=== PATIENT | male | born 1935 | race African-American/Black ===

== ENCOUNTER 2019-11-19 11:31 | Emergency (ER) | payer MEDICARE, OTHER ==
[~2019-11-19] VITALS: Ht 185.4 cm; Wt 88.0 kg
[2019-11-19 13:35] VITALS: BP 158/76
== END 2019-11-19 13:36 | disposition home or self-care (01) ==
LOC: ER 11:31
DX: T18.128A Food in esophagus causing other injury, initial encounter (principal); I10 Essential (primary) hypertension; Z88.0 Allergy status to penicillin; X58.XXXA Exposure to other specified factors, initial encounter; Y93.89 Activity, other specified; Y92.018 Other place in single-family (private) house as the place of occurrence of the external cause
CPT/HCPCS: 99281

== ENCOUNTER 2022-01-22 10:39 | Inpatient (IN) | payer MEDICARE, OTHER ==
[~2022-01-22] VITALS: Ht 185.4 cm; Wt 85.2 kg
[2022-01-22 12:26] LABS: CHLORIDE 109 mEq/L (98-107)
[2022-01-22 13:00] LABS: BASOPHILS % 0.3 % (0.0-2.0); EOSINOPHILS % 2.5 % (0.0-5.0); HEMATOCRIT. 38.5 % (42.0-52.0); HEMOGLOBIN. 11.9 g/dL (14.0-18.0); LYMPHOCYTES % 29.2 % (20.0-50.0); MEAN CORPUSCULAR HEMOGLOBIN 22.6 pg (28.0-32.0); MEAN CORPUSCULAR VOLUME 73.3 fL (80.0-94.0); MEAN PLATELET VOLUME 8.1 fl (7.4-10.4); MONOCYTES % 12.2 % (2.0-8.0); NEUTROPHILS % 55.8 % (40.0-76.0); PLATELET 194 x1000/uL (130-400); RED BLOOD CELL COUNT 5.25 mill/uL (4.7-6.1); RED CELL DISTRIBUTION WIDTH 20.7 % (11.6-14.6)
[2022-01-22 13:09] LABS: INR 1.1; PROTHROMBIN TIME 11.8 sec (9.6-11.0)
[2022-01-22] MEDS ORDERED: FUROSEMIDE 40MG/4ML VIAL IVP ONE (13:15)
[2022-01-22] MEDS ORDERED: PIPERACILLIN/TAZ 3.375G PREMIX 50 ML IV ONE (13:30)
[2022-01-22] MEDS ORDERED: VANCOMYCIN 1G PREMIX 200 ML IV ONE (13:30)
[2022-01-22] MEDS ORDERED: IPRATROPIUM/ALBUTEROL 0.5-3(2.5)MG/3ML NEB NEB PRN (14:45)
[2022-01-22] MEDS ORDERED: GUAIFENESIN 200MG/10ML SUGAR FREE UDC PO PRN (14:45)
[2022-01-22] MEDS ORDERED: DOCUSATE SODIUM 100MG CAPSULE PO PRN (14:45)
[2022-01-22] MEDS ORDERED: MAGNESIUM/ALUMINUM HYDROXIDE/SIMETHICONE 30ML UDC PO PRN (14:45)
[2022-01-22] MEDS ORDERED: ONDANSETRON HCL 4MG/2ML INJ IV PRN (14:45)
[2022-01-22] MEDS ORDERED: NA PHOS,M-B/NA PHOS,DI-BA ENEMA 118ML PR PRN (14:45)
[2022-01-22] MEDS ORDERED: NITROGLYCERIN 0.4MG TABLET SL SL PRN (14:45)
[2022-01-22] MEDS ORDERED: ACETAMINOPHEN 325MG TABLET PO PRN ×2 (14:45)
[2022-01-22] MEDS ORDERED: LEVOFLOXACIN 500MG PREMIX 100 ML IV NR (15:00)
[2022-01-22] MEDS ORDERED: SODIUM CHLORIDE 0.9% 1000ML BAG (SEPSIS BOLUS) IV NR (15:00)
[2022-01-22 15:18] LABS: ETHANOL BLOOD < 10 mg/dL; HDL CHOLESTEROL 66 mg/dL (40-59); LDL CHOLESTEROL 83 mg/dL (5-100); T4 FREE 1.13 ng/dL (0.76-1.46); TOTAL IRON BINDING CAPACITY 229 ug/dL (250-450)
[2022-01-22 15:36] LABS: BG BASE EXCESS 3.2 mmol/L (-2.0-2.0); BG CARBOXYHEMOGLOBIN 0.4 % (0.5-1.5); BG DEOXYHEMOGLOBIN 4.1 % (0.0-5.0); BG FRACTION INSPIRED OXYGEN 28; BG HCO3 ACT 27.2 mmol/L (22.0-26.0); BG METHEMOGLOBIN 0.3 % (0.0-1.5); BG OXYGEN SATURATION 95.9 % (92.0-98.5); BG OXYHEMOGLOBIN 95.2 % (94.0-97.0); BG PCO2 39.2 mmHg (35.0-45.0); BG PH 7.459 (7.350-7.450); BG PO2 79.3 mmHg (75.0-100.0); BG SAMPLE SITE RIGHT RADIAL; BG TOTAL HEMOGLOBIN 12.3 g/dL (12.0-18.0); BG VENT MODE NASAL CANNULA
[2022-01-22 16:25] LABS: FOLIC ACID (FOLATE) SERUM 10.6 ng/mL (>5.38)
[2022-01-22] MEDS: GUAIFENESIN/DM 600MG/30MG ER TAB 12HR PO SCH (20:56)
[2022-01-22] MEDS: ENOXAPARIN 40MG/0.4ML SYR SUBCUT SCH (20:57)
[2022-01-22] MEDS ORDERED: ZOLPIDEM TARTRATE 5MG TABLET PO PRN (21:00)
[2022-01-22 21:30] VITALS: BP 134/56
[2022-01-22] MEDS: ASCORBIC ACID 500 MG TABLET PO SCH (22:00)
[2022-01-22] MEDS: FAMOTIDINE 20MG TABLET PO SCH (22:00)
[2022-01-23] VITALS: BP 145/66
[2022-01-23] MEDS ORDERED: TOPUD PO (00:48)
[2022-01-23 01:46] LABS: CLARITY URINE CLEAR (CLEAR); COLOR URINE YELLOW (YELLOW); KETONES URINE NEGATIVE (NEGATIVE); LEUKOCYTE ESTERASE URINE NEGATIVE (NEGATIVE); NITRITE URINE NEGATIVE (NEGATIVE); OCCULT BLOOD URINE NEGATIVE (NEGATIVE); PH URINE 5.5 (4.5-8.0); PROTEIN URINE NEGATIVE (NEGATIVE); UROBILINOGEN URINE 0.2 E.U./dL (0.2-1.0)
[2022-01-23 01:59] LABS: *AMPHETAMINES SCREEN URINE NEGATIVE (NEGATIVE); *BARBITURATES SCREEN URINE NEGATIVE (NEGATIVE); *BENZODIAZEPINES SCREEN URINE NEGATIVE (NEGATIVE); *COCAINE SCREEN URINE NEGATIVE (NEGATIVE); CANNABINOID URINE SCREEN NEGATIVE (NEGATIVE); METHADONE URINE SCREEN NEGATIVE (NEGATIVE); OPIATES URINE SCREEN NEGATIVE (NEGATIVE); PHENCYCLIDINE URINE SCREEN NEGATIVE (NEGATIVE)
[2022-01-23 04:00] VITALS: BP 103/74
[2022-01-23] MEDS: GUAIFENESIN/DM 600MG/30MG ER TAB 12HR PO SCH ×2 (05:53→18:11)
[2022-01-23 08:00] VITALS: BP 160/94
[2022-01-23] MEDS ORDERED: ASPIRIN 325MG EC TABLET PO SCH (09:00)
[2022-01-23] MEDS: ASPIRIN 81MG EC TABLET PO SCH (09:17)
[2022-01-23] MEDS: ZINC SULFATE 220 MG ( 50 ) CAPSULE PO SCH (09:17)
[2022-01-23] MEDS: CHOLECALCIFEROL (D3) 1000 UNIT TABLET PO SCH (09:17)
[2022-01-23] MEDS: ASCORBIC ACID 500 MG TABLET PO SCH ×2 (09:17→21:25)
[2022-01-23] MEDS: SPIRONOLACTONE 25MG TABLET PO SCH (09:18)
[2022-01-23 09:31] LABS: HEMATOCRIT. 36.7 % (42.0-52.0); HEMOGLOBIN. 11.6 g/dL (14.0-18.0); MEAN CORPUSCULAR HEMOGLOBIN 22.6 pg (28.0-32.0); MEAN CORPUSCULAR VOLUME 71.5 fL (80.0-94.0); MEAN PLATELET VOLUME 8.3 fl (7.4-10.4); PLATELET 178 x1000/uL (130-400); RED BLOOD CELL COUNT 5.13 mill/uL (4.7-6.1); RED CELL DISTRIBUTION WIDTH 20.2 % (11.6-14.6)
[2022-01-23 09:32] LABS: CHLORIDE 105 mEq/L (98-107)
[2022-01-23 09:39] LABS: CREATINE KINASE MB FRACTION 2.1 ng/mL (0.5-3.6)
[2022-01-23 09:40] LABS: PHOSPHORUS 2.6 mg/dL (2.5-4.9)
[2022-01-23 11:13] LABS: NUCLEATED RED BLOOD CELLS 2 /100 WBC; PLATELET ESTIMATE NORMAL
[2022-01-23 11:50] VITALS: BP 128/77
[2022-01-23] MEDS: AMLODIPINE 5MG TABLET PO SCH (12:17)
[2022-01-23] MEDS: LEVOFLOXACIN 250MG PREMIX 50 ML IV SCH (14:57)
[2022-01-23] MEDS: ENOXAPARIN 40MG/0.4ML SYR SUBCUT SCH (14:58)
[2022-01-23 16:00] VITALS: BP 141/82
[2022-01-23] MEDS ORDERED: REGADENOSON 0.4 MG/5 ML IV SCH (16:00)
[2022-01-23 20:00] VITALS: BP 167/47
[2022-01-23] MEDS: FAMOTIDINE 20MG TABLET PO SCH (21:25)
[2022-01-23] MEDS: METOPROLOL TARTRATE 25MG TABLET PO SCH (21:25)
[2022-01-24] VITALS (7 sets, daily range): BP systolic 127–184; BP diastolic 71–97
[2022-01-24] MEDS: GUAIFENESIN/DM 600MG/30MG ER TAB 12HR PO SCH ×2 (03:23→19:15)
[2022-01-24] MEDS: CLONIDINE 0.1MG TABLET PO PRN (03:23)
[2022-01-24 07:12] LABS: HEMOGLOBIN 11.4 g/dL (14.0-18.0)
[2022-01-24 07:29] LABS: CHLORIDE 105 mEq/L (98-107)
[2022-01-24] MEDS ORDERED: REGADENOSON 0.4 MG/5 ML IV ONE (08:21)
[2022-01-24] MEDS: SPIRONOLACTONE 25MG TABLET PO SCH (09:00)
[2022-01-24] MEDS: METOPROLOL TARTRATE 25MG TABLET PO SCH ×2 (09:00→20:54)
[2022-01-24] MEDS: DEXT 5%/0.9% NACL 1,000 ML IV SCH (12:00)
[2022-01-24] MEDS: ENOXAPARIN 40MG/0.4ML SYR SUBCUT SCH (14:28)
[2022-01-24] MEDS: ASPIRIN 81MG EC TABLET PO SCH (14:29)
[2022-01-24] MEDS: CHOLECALCIFEROL (D3) 1000 UNIT TABLET PO SCH (14:29)
[2022-01-24] MEDS: ASCORBIC ACID 500 MG TABLET PO SCH ×2 (14:29→21:00)
[2022-01-24] MEDS: AMLODIPINE 5MG TABLET PO SCH (14:30)
[2022-01-24] MEDS: ZINC SULFATE 220 MG ( 50 ) CAPSULE PO SCH (14:40)
[2022-01-24] MEDS: LEVOFLOXACIN 250MG PREMIX 50 ML IV SCH (15:00)
[2022-01-24] MEDS: FAMOTIDINE 20MG TABLET PO SCH (21:00)
[2022-01-25] MEDS: CLONIDINE 0.1MG TABLET PO PRN ×2 (00:01→18:01)
[2022-01-25] MEDS: DEXT 5%/0.9% NACL 1,000 ML IV SCH ×2 (00:48→15:40)
[2022-01-25 04:00] VITALS: BP 180/90
[2022-01-25] MEDS: HYDRALAZINE 20MG/ML VIAL IV PRN (05:01)
[2022-01-25] MEDS: GUAIFENESIN/DM 600MG/30MG ER TAB 12HR PO SCH ×2 (05:01→17:48)
[2022-01-25 07:39] LABS: HEMATOCRIT. 34.2 % (42.0-52.0); MEAN CORPUSCULAR VOLUME 71.8 fL (80.0-94.0); MEAN PLATELET VOLUME 8.5 fl (7.4-10.4); PLATELET 172 x1000/uL (130-400); RED BLOOD CELL COUNT 4.77 mill/uL (4.7-6.1); RED CELL DISTRIBUTION WIDTH 20.4 % (11.6-14.6)
[2022-01-25 07:56] LABS: CHLORIDE 104 mEq/L (98-107)
[2022-01-25 08:00] VITALS: BP 161/69
[2022-01-25] MEDS: METOPROLOL TARTRATE 25MG TABLET PO SCH ×2 (09:00→20:38)
[2022-01-25] MEDS: CHOLECALCIFEROL (D3) 1000 UNIT TABLET PO SCH (09:19)
[2022-01-25] MEDS: AMLODIPINE 10MG TABLET PO SCH (09:20)
[2022-01-25] MEDS: ASCORBIC ACID 500 MG TABLET PO SCH ×2 (09:21→21:07)
[2022-01-25] MEDS: SPIRONOLACTONE 25MG TABLET PO SCH (09:21)
[2022-01-25] MEDS: ZINC SULFATE 220 MG ( 50 ) CAPSULE PO SCH (09:22)
[2022-01-25] MEDS: ASPIRIN 81MG EC TABLET PO SCH (09:26)
[2022-01-25 10:11] LABS: NUCLEATED RED BLOOD CELLS 1 /100 WBC
[2022-01-25 10:13] LABS: PLATELET ESTIMATE NORMAL
[2022-01-25 12:00] VITALS: BP 145/66
[2022-01-25] MEDS: ENOXAPARIN 40MG/0.4ML SYR SUBCUT SCH (15:39)
[2022-01-25] MEDS: LEVOFLOXACIN 250MG PREMIX 50 ML IV SCH (15:39)
[2022-01-25 16:00] VITALS: BP 166/90
[2022-01-25 20:00] VITALS: BP 140/70
[2022-01-25] MEDS: FAMOTIDINE 20MG TABLET PO SCH (21:06)
[2022-01-26] VITALS: BP 149/69
[2022-01-26 04:00] VITALS: BP 174/101
[2022-01-26] MEDS: HYDRALAZINE 20MG/ML VIAL IV PRN (04:50)
[2022-01-26] MEDS: GUAIFENESIN/DM 600MG/30MG ER TAB 12HR PO SCH (04:50)
[2022-01-26 07:19] LABS: HEMOGLOBIN. 12.5 g/dL (14.0-18.0); MEAN CORPUSCULAR HEMOGLOBIN 22.9 pg (28.0-32.0); MEAN CORPUSCULAR VOLUME 73.1 fL (80.0-94.0); MEAN PLATELET VOLUME 8.5 fl (7.4-10.4); PLATELET 184 x1000/uL (130-400); RED BLOOD CELL COUNT 5.47 mill/uL (4.7-6.1); RED CELL DISTRIBUTION WIDTH 20.3 % (11.6-14.6)
[2022-01-26 07:56] LABS: CHLORIDE 105 mEq/L (98-107)
[2022-01-26 08:00] VITALS: BP 145/64
[2022-01-26] MEDS: ZINC SULFATE 220 MG ( 50 ) CAPSULE PO SCH (08:45)
[2022-01-26] MEDS: ASCORBIC ACID 500 MG TABLET PO SCH (08:45)
[2022-01-26] MEDS: CHOLECALCIFEROL (D3) 1000 UNIT TABLET PO SCH (08:45)
[2022-01-26] MEDS: ASPIRIN 81MG EC TABLET PO SCH (08:45)
[2022-01-26] MEDS: SPIRONOLACTONE 25MG TABLET PO SCH (08:45)
[2022-01-26] MEDS: METOPROLOL TARTRATE 25MG TABLET PO SCH (08:46)
[2022-01-26] MEDS: AMLODIPINE 10MG TABLET PO SCH (08:46)
[2022-01-26] MEDS ORDERED: LEVOFLOXACIN 250MG TABLET PO SCH (11:00)
[2022-01-26 12:35] VITALS: BP 140/70
[2022-01-26 21:17] LABS: PLATELET ESTIMATE NORMAL
== END 2022-01-26 14:29 | disposition home or self-care (01) | DRG 280 ==
LOC: ER 10:39 → EDBEDREQ 13:26 → EDBEDREQTM 13:26 → SUPCPDRO 14:30 → CANRESERV 15:10 → ENRESERV 15:10 → 6WST 21:30
PROVIDERS: ADMIT Internal Medicine; ATTEND Internal Medicine
DX: I11.0 Hypertensive heart disease with heart failure (principal); I21.4 Non-ST elevation (NSTEMI) myocardial infarction; G92.8 Other toxic encephalopathy; I50.33 Acute on chronic diastolic (congestive) heart failure; J44.1 Chronic obstructive pulmonary disease with (acute) exacerbation; E87.2 Acidosis; E46 Unspecified protein-calorie malnutrition; N17.9 Acute kidney failure, unspecified; G45.9 Transient cerebral ischemic attack, unspecified; E88.09 Other disorders of plasma-protein metabolism, not elsewhere classified; Z20.822 Contact with and (suspected) exposure to COVID-19; D50.9 Iron deficiency anemia, unspecified; I16.0 Hypertensive urgency; I27.20 Pulmonary hypertension, unspecified; D63.8 Anemia in other chronic diseases classified elsewhere; E03.8 Other specified hypothyroidism; Z88.0 Allergy status to penicillin; Z88.1 Allergy status to other antibiotic agents; Z82.49 Family history of ischemic heart disease and other diseases of the circulatory system; Z68.24 Body mass index [BMI] 24.0-24.9, adult
CPT/HCPCS: 36415; 36600; 70551; 71045; 78452; 80053; 80061; 80305; 80320; 81003; 82375; 82550; 82553; 82607; 82746; 82805; 83036; 83540; 83550; 83605; 83735; 83880; 84100; 84145; 84439; 84443; 84484; 85014; 85018; 85025; 87426; 93005; 93017; 93306; 93970; 97162; 97166; 97530; 99285; A9500; C9803; J0360; J1650; J1940; J1956; J2543; J2785; J3370; J7042; G0480

== ENCOUNTER 2022-03-17 13:03 | Inpatient (IN) | payer MEDICARE, OTHER ==
[~2022-03-17] VITALS: Ht 182.9 cm; Wt 89.8 kg
[~2022-03-17 13:03] MED LIST: TOPUD PO
[2022-03-17] MEDS ORDERED: METHYLPREDNISOLONE SOD SUCC 125 MG/2 ML VIAL IV STA (13:27)
[2022-03-17] MEDS ORDERED: ALBUTEROL (0.083%) 2.5MG/3ML NEB HHN STA (13:27)
[2022-03-17] MEDS ORDERED: IPRATROPIUM BROMIDE (0.02%) 0.5MG/2.5ML NEB HHN STA (13:27)
[2022-03-17 13:58] LABS: BASOPHILS % 0.5 % (0.0-2.0); EOSINOPHILS % 1.1 % (0.0-5.0); HEMATOCRIT. 40.6 % (42.0-52.0); HEMOGLOBIN. 12.8 g/dL (14.0-18.0); MEAN CORPUSCULAR HEMOGLOBIN 23.3 pg (28.0-32.0); MEAN CORPUSCULAR VOLUME 73.7 fL (80.0-94.0); MEAN PLATELET VOLUME 8.7 fl (7.4-10.4); MONOCYTES % 9.4 % (2.0-8.0); PLATELET 170 x1000/uL (130-400); RED BLOOD CELL COUNT 5.51 mill/uL (4.7-6.1); RED CELL DISTRIBUTION WIDTH 17.7 % (11.6-14.6)
[2022-03-17 14:00] LABS: CHLORIDE 104 mEq/L (98-107)
[2022-03-17 14:34] LABS: BG CARBOXYHEMOGLOBIN 1.4 % (0.5-1.5); BG DEOXYHEMOGLOBIN 2.8 % (0.0-5.0); BG FRACTION INSPIRED OXYGEN 21; BG HCO3 ACT 25.9 mmol/L (22.0-26.0); BG METHEMOGLOBIN 0.5 % (0.0-1.5); BG OXYGEN SATURATION 97.1 % (92.0-98.5); BG OXYHEMOGLOBIN 95.3 % (94.0-97.0); BG PCO2 34.5 mmHg (35.0-45.0); BG PH 7.494 (7.350-7.450); BG PO2 84.1 mmHg (75.0-100.0); BG SAMPLE SITE RIGHT RADIAL; BG TOTAL HEMOGLOBIN 13.4 g/dL (12.0-18.0); BG VENT MODE ROOM AIR
[2022-03-17 17:03] LABS: CLARITY URINE HAZY (CLEAR); COLOR URINE YELLOW (YELLOW)
[2022-03-17 17:04] LABS: KETONES URINE TRACE (NEGATIVE); LEUKOCYTE ESTERASE URINE NEGATIVE (NEGATIVE); NITRITE URINE NEGATIVE (NEGATIVE); OCCULT BLOOD URINE NEGATIVE (NEGATIVE); PROTEIN URINE 1+ (NEGATIVE); UROBILINOGEN URINE 0.2 E.U./dL (0.2-1.0)
[2022-03-17 23:00] VITALS: BP 172/93
[2022-03-18] VITALS (8 sets, daily range): BP systolic 95–187; BP diastolic 52–98
[2022-03-18] MEDS ORDERED: HYDRALAZINE 20MG/ML VIAL IV NR (00:15)
[2022-03-18] MEDS ORDERED: IPRATROPIUM/ALBUTEROL 0.5-3(2.5)MG/3ML NEB HHN PRN (00:15)
[2022-03-18] MEDS ORDERED: LOPHC2 MT (02:08)
[2022-03-18] MEDS ORDERED: SPIR25TA6 MT (02:08)
[2022-03-18] MEDS ORDERED: AMLO5TAB4 PO (02:08)
[2022-03-18] MEDS ORDERED: ASPI-1497 MT (02:08)
[2022-03-18] MEDS: METHYLPREDNISOLONE SOD SUCC 40 MG/ML VIAL IV SCH ×3 (06:25→21:03)
[2022-03-18 06:53] LABS: BASOPHILS % 0.1 % (0.0-2.0); HEMATOCRIT. 40.8 % (42.0-52.0); LYMPHOCYTES % 16.2 % (20.0-50.0); MEAN CORPUSCULAR HEMOGLOBIN 23.2 pg (28.0-32.0); MEAN CORPUSCULAR VOLUME 72.8 fL (80.0-94.0); MONOCYTES % 4.8 % (2.0-8.0); NEUTROPHILS % 78.9 % (40.0-76.0); PLATELET 182 x1000/uL (130-400); RED CELL DISTRIBUTION WIDTH 17.6 % (11.6-14.6)
[2022-03-18 07:03] LABS: CHLORIDE 108 mEq/L (98-107)
[2022-03-18] MEDS: AMLODIPINE 10MG TABLET PO SCH (07:39)
[2022-03-18] MEDS ORDERED: MORPHINE SULFATE 2 MG/ML CPJ (NOT FOR IM USE) IV PRN (08:15)
[2022-03-18] MEDS: ENOXAPARIN 40MG/0.4ML SYR SUBCUT SCH (08:44)
[2022-03-18] MEDS ORDERED: FUROSEMIDE 40MG/4ML VIAL IVP SCH (09:00)
[2022-03-18] MEDS ORDERED: HYDROCHLOROTHIAZIDE 25MG TABLET PO SCH (10:15)
[2022-03-18] MEDS: SPIRONOLACTONE 25MG TABLET PO SCH (11:49)
[2022-03-18] MEDS: METOPROLOL TARTRATE 25MG TABLET PO SCH (21:03)
[2022-03-19] VITALS: BP 159/78
[2022-03-19 04:00] VITALS: BP 153/79
[2022-03-19] MEDS: METHYLPREDNISOLONE SOD SUCC 40 MG/ML VIAL IV SCH ×3 (05:32→21:09)
[2022-03-19] MEDS: FUROSEMIDE 40MG/4ML VIAL IVP SCH (09:29)
[2022-03-19] MEDS: AMLODIPINE 10MG TABLET PO SCH (09:30)
[2022-03-19] MEDS: SPIRONOLACTONE 25MG TABLET PO SCH (09:31)
[2022-03-19] MEDS: ENOXAPARIN 40MG/0.4ML SYR SUBCUT SCH (09:33)
[2022-03-19] MEDS: METOPROLOL TARTRATE 25MG TABLET PO SCH ×2 (09:33→21:09)
[2022-03-19] MEDS ORDERED: MED4 MT (11:43)
[2022-03-19 12:00] VITALS: BP 111/60
[2022-03-19 16:00] VITALS: BP 164/81
[2022-03-19] MEDS: MECLIZINE 12.5MG TABLET PO SCH (17:23)
[2022-03-19 19:00] VITALS: BP 169/84
[2022-03-19] MEDS ORDERED: NALOXONE HCL 0.4MG/ML VIAL IV PRN (22:30)
[2022-03-19] MEDS: HYDRALAZINE 20MG/ML VIAL IV PRN (23:08)
[2022-03-20] VITALS (8 sets, daily range): BP systolic 132–179; BP diastolic 70–110
[2022-03-20] MEDS: METHYLPREDNISOLONE SOD SUCC 40 MG/ML VIAL IV SCH ×3 (05:41→21:08)
[2022-03-20 07:37] LABS: HEMATOCRIT. 42.5 % (42.0-52.0); HEMOGLOBIN. 13.7 g/dL (14.0-18.0); LYMPHOCYTES % 10.4 % (20.0-50.0); MEAN CORPUSCULAR HEMOGLOBIN 23.4 pg (28.0-32.0); MEAN CORPUSCULAR VOLUME 72.5 fL (80.0-94.0); MEAN PLATELET VOLUME 8.7 fl (7.4-10.4); MONOCYTES % 5.2 % (2.0-8.0); NEUTROPHILS % 84.4 % (40.0-76.0); PLATELET 180 x1000/uL (130-400); RED BLOOD CELL COUNT 5.85 mill/uL (4.7-6.1); RED CELL DISTRIBUTION WIDTH 17.3 % (11.6-14.6)
[2022-03-20 08:11] LABS: CHLORIDE 103 mEq/L (98-107)
[2022-03-20] MEDS: AMLODIPINE 10MG TABLET PO SCH (08:58)
[2022-03-20] MEDS: FUROSEMIDE 40MG/4ML VIAL IVP SCH (08:58)
[2022-03-20] MEDS: ENOXAPARIN 40MG/0.4ML SYR SUBCUT SCH (08:58)
[2022-03-20] MEDS: HYDRALAZINE 20MG/ML VIAL IV PRN ×2 (08:58→20:22)
[2022-03-20] MEDS: SPIRONOLACTONE 25MG TABLET PO SCH (08:58)
[2022-03-20] MEDS: MECLIZINE 12.5MG TABLET PO SCH ×2 (08:58→17:20)
[2022-03-20] MEDS: METOPROLOL TARTRATE 25MG TABLET PO SCH ×2 (09:01→20:10)
== END 2022-03-20 21:55 | disposition home or self-care (01) | DRG 291 ==
LOC: ER 13:03 → 7WST 17:31 → EDBEDREQTM 17:49 → EDBEDREQ 17:49 → ENRESERV 21:36
PROVIDERS: ADMIT Internal Medicine; ATTEND Internal Medicine
DX: I13.0 Hypertensive heart and chronic kidney disease with heart failure and stage 1 through stage 4 chronic kidney disease, or unspecified chronic kidney disease (principal); I50.33 Acute on chronic diastolic (congestive) heart failure; J96.20 Acute and chronic respiratory failure, unspecified whether with hypoxia or hypercapnia; J44.1 Chronic obstructive pulmonary disease with (acute) exacerbation; Z20.822 Contact with and (suspected) exposure to COVID-19; N18.9 Chronic kidney disease, unspecified; Z88.0 Allergy status to penicillin; Z88.8 Allergy status to other drugs, medicaments and biological substances; Z99.81 Dependence on supplemental oxygen
CPT/HCPCS: 36415; 36600; 71045; 80048; 80053; 81003; 82375; 82805; 83880; 84484; 85025; 87426; 87804; 93005; 99285; C9803; J0360; J1650; J1940; J2270; J2920; J2930; J8597